=== PATIENT | male | born 1950 | race Caucasian/White ===

== ENCOUNTER → 2016-08-17 | Outpatient (CLI) | payer MEDICARE, OTHER ==
[~2016-08-17] VITALS: Ht 193 cm; Wt 102.1 kg
[2016-08-17 10:50] VITALS: BP 124/74
--- NOTE | 2016-08-17 10:53 | Progress Note-Pre Operative ---
Pre-Operative Progress Note H&P Reviewed The H&P was reviewed, patient examined and no changes noted. Date H&P Reviewed: Aug 17, 2016 Time H&P Reviewed: 10:50 Pre-Operative Diagnosis: US guided FNA of Thyroid Nodule ANTONINO BUTLER MD Aug 17, 2016 10:53 am
--- NOTE | 2016-08-17 10:54 | Progress Note-Post Operative ---
Post-Operative Progess Note Surgeon (s)/Director Business (s) Surgeon ANTONINO BUTLER MD Director Business: n/a Pre-Operative Diagnosis US guided FNA of Thyroid Nodule Post-Operative Diagnosis same Post-Op Procedure Note Date of Procedure: Aug 17, 2016 Name of Procedure Performed: US Guided FNA of Thyroid Nodule Description of the Procedure: n/a Findings of the Procedure n/a Anesthesia Type local Estimated blood loss (mL): minimal Specimen(s) collected/removed slides and cytology t o pathology for review ANTONINO BUTLER MD Aug 17, 2016 10:54 am
[2016-08-17 11:10] VITALS: BP 128/79
--- NOTE | 2016-08-17 11:34 | Diagnostic Imaging Report ---
EXAMINATION: Dedicated thyroid ultrasound performed with ultrasound guidance provided for FNA performed by Dr. Rico. Indication: Thyroid nodule FINDINGS: Ultrasound images demonstrate a right thyroid nodule. IMPRESSION: Ultrasound guidance provided for right thyroid nodule FNA. Dictated by: Dictated on workstation # [id number]
== END ==
LOC: RAD 10:33
PROVIDERS: ATTEND Otolaryngology Otolaryngology/Facial Plastic Surgery
DX: E04.1 Nontoxic single thyroid nodule (principal)
CPT/HCPCS: 76942; 88305

== ENCOUNTER 2017-04-15 10:04 | Outpatient (CLI) | payer MEDICARE, OTHER | END 2017-04-15 10:30 | disposition home or self-care (01) | LOC: SLEEP 10:04 | PROVIDERS: ATTEND Otolaryngology Otolaryngology/Facial Plastic Surgery | DX: G47.10 Hypersomnia, unspecified (principal); E04.2 Nontoxic multinodular goiter ==

== ENCOUNTER → 2019-03-23 | Outpatient (CLI) | payer MEDICARE, OTHER ==
--- NOTE | 2019-03-23 13:08 | Diagnostic Imaging Report ---
INDICATION: Multinodular goiter. TECHNIQUE: Thyroid sonography performed in the routine fashion. FINDINGS: The right thyroid lobe measured 6.2 x 2.1 x 2.9 cm. Left thyroid lobe measured 6.0 x 1.7 x 1.5 cm. Multiple nodules are visualized in the right thyroid lobe. There is a inhomogeneous nodule in the right thyroid lobe with slightly hyperechoic appearance. This measured 2.7 x 1.7 x 1.9 cm. There are couple of smaller nodules in the right thyroid lobe, including a 1.1 x 0.9 x 0.7 cm nodule in the right thyroid lobe inferiorly. On the left side, there are couple of smaller nodules as well, including a mildly hyperechoic inhomogeneous lesion measuring 1.4 x 0.9 x 1.1 cm in the midportion of the gland and a 6 x 5 x 4 mm nodule inferiorly. IMPRESSION: Multiple thyroid nodules are present, as described above. The dominant nodule in the right thyroid lobe centrally measured 2.7 x 1.7 x 1.9 cm. We do not have a previous study for comparison. We have a previous single image from biopsy of 08/17/2016. The dominant lesion in the right thyroid lobe could be biopsied under ultrasound guidance, if clinically warranted. Dictated by: Dictated on workstation # [id number]
== END ==
LOC: RAD 09:31
PROVIDERS: ATTEND Otolaryngology Otolaryngology/Facial Plastic Surgery
DX: E04.2 Nontoxic multinodular goiter (principal)
CPT/HCPCS: 76536

== ENCOUNTER → 2020-11-07 | Outpatient (CLI) | payer MEDICARE, OTHER ==
--- NOTE | 2020-11-07 12:12 | Diagnostic Imaging Report ---
PROCEDURE: US Thyroid. TECHNIQUE: Multiple real-time grayscale images were obtained of the thyroid in various projections. INDICATION: Multinodular goiter. Correlation is made with prior ultrasound from 03/23/2019. The right lobe of thyroid measures 6.0 x 2.1 x 2.8 cm and left lobe measures 5.3 x 1.7 x 1.7 cm. Isthmus is 2 mm in thickness. Mass in the mid to upper aspect of the left lobe measures 1.5 x 1.3 x 1.2 cm compared with 1.4 x 0.9 x 1.1 cm. Nodule in the lower pole left lobe measures 0.6 x 0.5 x 0.6 cm, stable. On the right the dominant mass or 2 adjacent masses measures 2.8 x 1.7 x 1.8 cm, unchanged from prior. Nodule in the lower pole measures 0.9 x 0.9 x 1.0 cm, stable. No new masses are seen. IMPRESSION: Overall stable thyroid ultrasound with the exception of very slight increase in size of the dominant nodule in the left lobe of the thyroid when compared with examination from 03/23/2019. Dictated by: Dictated on workstation # [id number]
== END ==
LOC: RAD 08:00
PROVIDERS: ATTEND Otolaryngology Otolaryngology/Facial Plastic Surgery
DX: E04.2 Nontoxic multinodular goiter (principal)
CPT/HCPCS: 76536

== ENCOUNTER → 2022-02-02 | Outpatient (CLI) | payer MEDICARE, OTHER ==
--- NOTE | 2022-02-02 13:25 | Diagnostic Imaging Report ---
PROCEDURE: US Thyroid. TECHNIQUE: Multiple real-time grayscale images were obtained of the thyroid in various projections. INDICATION: Thyroid nodule. COMPARISON: 11/07/2020. FINDINGS: Right thyroid lobe: Size (cm): 6.0 x 1.9 x 2.4 Echotexture: Normal Vascularity: Normal Nodules: In the mid right thyroid, there is 2 cm solid mostly isoechoic nodule with no calcifications. Just inferior to this, there is a 1 cm isoechoic solid nodule. These two nodules were previously measured as one, but appear stable. In the inferior right thyroid, there is a heterogeneous part-cystic part-solid isoechoic nodule measuring 1.1 cm. Isthmus: Size (cm): 0.2 Nodules: None Left thyroid lobe: Size (cm): 5.2 x 2.0 x 1.8 Echotexture: Normal Vascularity: Normal Nodules: In the mid left thyroid, there is a 1.5 cm isoechoic, spongiform nodule. At the inferior left thyroid, there is a 1.2 cm isoechoic part-cystic part-solid ill-defined nodule. This second nodule is measured larger than the prior study but this is thought to be due to differences in measurement technique. IMPRESSION: 1. Multinodular thyroid, appears stable since the prior study. Recommend follow-up in one year. Dictated by: Dictated on workstation # [id number]
== END ==
LOC: RAD 07:45
PROVIDERS: ATTEND Otolaryngology Otolaryngology/Facial Plastic Surgery
DX: E04.2 Nontoxic multinodular goiter (principal)
CPT/HCPCS: 76536

== ENCOUNTER → 2023-02-05 | Outpatient (CLI) | payer MEDICARE, OTHER ==
--- NOTE | 2023-02-05 12:59 | Diagnostic Imaging Report ---
PROCEDURE: US Thyroid. TECHNIQUE: Multiple real-time grayscale images were obtained of the thyroid in various projections. INDICATION: Nodular goiter. COMPARISON: 02/02/2022. FINDINGS: Right thyroid lobe: Size (cm): 5.6 x 1.9 x 2.5 Echotexture: Normal Vascularity: Normal Nodules: There is an isoechoic solid 2.1 cm nodule in the superior right thyroid which is stable since the prior study. There is an isoechoic solid 1 cm nodule in the right mid thyroid which is stable. There is an isoechoic part-cystic part-solid 1 cm nodule in the inferior right thyroid which is stable. Isthmus: Size (cm): 0.2 Nodules: None Left thyroid lobe: Size (cm): 5.2 x 2.0 x 1.9 Echotexture: Normal Vascularity: Normal Nodules: In the superior left thyroid, there is a 1.7 cm nodule which is isoechoic and part solid part spongiform. In the inferior left thyroid, there is a 0.7 cm solid isoechoic nodule which is stable. IMPRESSION: 1. Multinodular thyroid with stable nodules bilaterally. These overall appear stable since 2019. Recommend follow-up ultrasound in one year. Dictated by: Dictated on workstation # [id number]
== END ==
LOC: RAD 08:14
PROVIDERS: ATTEND Otolaryngology Otolaryngology/Facial Plastic Surgery
DX: E04.2 Nontoxic multinodular goiter (principal)
CPT/HCPCS: 76536